=== PATIENT | male | born 1990 | race Caucasian/White ===

== ENCOUNTER 2021-03-28 11:21 | Emergency (ER) | payer OTHER ==
--- NOTE | 2021-03-28 16:51 | ER ---
Nurse's Notes [facility] Name: Jasen Yoder Age: 30 yrs Sex: Male : 1990 Arrival Date: 03/28/2021 Time: 11:25 Bed Waiting Private MD: Diagnosis: Presentation: 03/28 12:08 Chief complaint: Patient states: pilonidal cyst on set as an ingrown hair since eo2 03/02/21- visited gen surgery 2 weeks ago in [place] (here in [place] visiting), RX for doxycycline, "I took it inconsistently and the cyst has gotten worse over the last few days, draining pus, and it hurt a lot last night". Coronavirus screen: Vaccine status: Patient reports receiving the 2nd dose of the covid vaccine. Client denies travel out of the [place] in the last 14 days. Ebola Screen: Patient negative for fever greater than or equal to 101.5 degrees Fahrenheit, and additional compatible Ebola Virus Disease symptoms Patient denies exposure to infectious person. Patient denies travel to an Ebola-affected area in the 21 days before illness onset. No symptoms or risks identified at this time. Initial Sepsis Screen: Does the patient meet any 2 criteria? No. Patient's initial sepsis screen is negative. Does the patient have a suspected source of infection? Yes: Skin breakdown/wound. Risk Assessment: Do you want to hurt yourself or someone else? Patient reports no desire to harm self or others. Onset of symptoms is unknown. 12:08 Method Of Arrival: Ambulatory eo2 12:08 Acuity: FIORELLA 3 eo2 12:08 Acuity: FIORELLA 4 eo2 Triage Assessment: 12:14 General: Appears in no apparent distress. Behavior is calm, cooperative. Pain: eo2 Complains of pain in buttock. Historical: - Allergies: 12:13 Betadine; eo2 - Home Meds: 12:13 None [Active]; eo2 - PSHx: 12:14 varicocelectomy; eo2 - Immunization history:: Adult Immunizations up to date, Client reports receiving the 2nd dose of the Covid vaccine. - Social history:: Smoking status: Patient denies any tobacco usage or history of. Patient uses alcohol, occasionally. Vital Signs: 12:08 BP 115 / 78; Pulse 76; Resp 15; Temp 98.4; Pulse Ox 100% ; Weight 99.79 kg; Height 6 eo2 ft. 2 in. (187.96 cm); Pain 4/10; 12:08 Body Mass Index 28.25 (99.79 kg, 187.96 cm) eo2 ED Course: 11:25 Patient arrived in ED. mr 12:13 Triage completed. eo2 Administered Medications: No medications were administered Outcome: 16:50 Patient left the ED. eo2 Signatures: Leticia Browne Eunice RN RN eo2 Corrections: (The following items were deleted from the chart) 12:14 12:13 Allergies: No Known Allergies; eo2 eo2
[2021-03-28 16:55] VITALS: BP 115/78; TEMP 98.4; O2SAT 100
== END 2021-03-28 16:50 | disposition left against medical advice (07) ==
LOC: ER 11:21
DX: L05.91 Pilonidal cyst without abscess (principal); Z53.21 Procedure and treatment not carried out due to patient leaving prior to being seen by health care provider
CPT/HCPCS: 99281